=== PATIENT | female | born 2000 | race Caucasian/White ===

== ENCOUNTER 2019-09-13 19:51 | Emergency (ER) | payer OTHER ==
[~2019-09-13] VITALS: Ht 162.6 cm; Wt 77.1 kg
[2019-09-13 20:23] LABS: Source, Urine Clean Catch
[2019-09-13 20:26] LABS: Appearance, Urine Hazy (Clear); Bilirubin, Urine Neg (Neg); Blood, Urine 4+ (Neg); Color, Urine Yellow (P-Yellow); Glucose Qualitative, Urine Neg (Neg); Ketones, Urine Neg (Neg); Leukocyte Esterase, Urine 3+ (Neg); Nitrite, Urine Neg (Neg); Protein, Urine 3+ (Neg); Urobilinogen, Urine NORM (Normal)
[2019-09-13 20:32] LABS: Bacteria Many /hpf; Squamous Epithelial Cells Mod /hpf (Few)
[2019-09-13 20:33] LABS: Mucus Mod (0-Heavy)
[2019-09-13] MEDS ORDERED: NORCO 7.5-3251 EACH PO (21:55)
[2019-09-13] MEDS ORDERED: Cipro500 MG PO (21:55)
[2019-09-13] MEDS ORDERED: IBU800 MG PO (21:55)
== END 2019-09-13 22:24 | disposition home or self-care (01) ==
LOC: ER 19:51
PROVIDERS: Physician Assistant
DX: N10 Acute pyelonephritis (principal)
CPT/HCPCS: 74176; 81001; 81025; 87077; 87086; 87186; 99284-25; A9270

== ENCOUNTER 2023-03-17 23:13 | Emergency (ER) | payer OTHER ==
[~2023-03-17] VITALS: Ht 160 cm; Wt 77.1 kg
[~2023-03-17 23:13] MED LIST: Cipro500 MG PO; IBU800 MG PO; NORCO 7.5-3251 EACH PO
[2023-03-17 23:24] VITALS: BP 132/73
[2023-03-17] MEDS ORDERED: Amoxicillin500 MG PO (23:50)
== END 2023-03-18 00:20 | disposition home or self-care (01) ==
LOC: ER 23:13
DX: J02.0 Streptococcal pharyngitis (principal); Z79.2 Long term (current) use of antibiotics; Z79.52 Long term (current) use of systemic steroids; Z79.1 Long term (current) use of non-steroidal anti-inflammatories (NSAID); F17.210 Nicotine dependence, cigarettes, uncomplicated
CPT/HCPCS: 87430; 99282; A9270

== ENCOUNTER → 2023-07-16 | Outpatient (CLI) | payer OTHER ==
[~2023-07-16] MED LIST changes: +Amoxicillin500 MG PO
== END | disposition home or self-care (01) ==
LOC: LAB 17:33 → LAB SHORT 17:33
DX: R30.0 Dysuria (principal)
CPT/HCPCS: 87086

== ENCOUNTER → 2024-08-11 | Outpatient (CLI) | payer OTHER | END | disposition home or self-care (01) | LOC: LAB SHORT 14:26 → LAB 14:26 | DX: N39.0 Urinary tract infection, site not specified (principal) | CPT/HCPCS: 87077; 87086; 87186 ==

== ENCOUNTER → 2024-10-16 | Outpatient (CLI) | payer OTHER | END | disposition home or self-care (01) | LOC: LAB SHORT 15:12 → LAB 15:12 | DX: N39.0 Urinary tract infection, site not specified (principal); R30.0 Dysuria; R35.0 Frequency of micturition | CPT/HCPCS: 87086 ==

== ENCOUNTER 2025-07-06 08:51 | Emergency (ER) | payer OTHER ==
[~2025-07-06] VITALS: Ht 165.1 cm; Wt 74.8 kg
[2025-07-06] MEDS ORDERED: Prochlorperazine Edisylate 10 mg Vial IV ONE (09:40)
[2025-07-06] MEDS ORDERED: DiphenhydrAMINE HCl 50 MG/ML 1ML Vial IV ONE (09:40)
[2025-07-06] MEDS ORDERED: NS 1,000 ML IV SCH (09:40)
[2025-07-06 10:23] LABS: Source, Urine Clean Catch
[2025-07-06 10:31] LABS: Bilirubin, Urine Neg (Neg); Color, Urine Yellow (P-Yellow); Glucose Qualitative, Urine Neg (Neg); Ketones, Urine Neg (Neg); Leukocyte Esterase, Urine 2+ (Neg); Protein, Urine 2+ (Neg); Specific Gravity, Urine 1.025 (1.003-1.022); Urobilinogen, Urine NORM (Normal)
[2025-07-06 10:48] LABS: White Blood Cells, Urine 50-100 /hpf (0-5)
[2025-07-06] MEDS ORDERED: CEPH500 PO (11:04)
[2025-07-06] MEDS ORDERED: Ketorolac Tromethamine 15mg Vial IV ONE (11:05)
[2025-07-06 11:15] VITALS: BP 132/72
== END 2025-07-06 11:30 | disposition home or self-care (01) ==
LOC: ER 08:51
PROVIDERS: Emergency Medicine
DX: G43.909 Migraine, unspecified, not intractable, without status migrainosus (principal); N39.0 Urinary tract infection, site not specified; F17.290 Nicotine dependence, other tobacco product, uncomplicated; Z79.899 Other long term (current) drug therapy
CPT/HCPCS: 70450; 81001; 81025; 87077; 87086; 87186; 96361; 96374; 96375; 99283-25; A9270; J0780; J1200; J1885; J7030

== ENCOUNTER → 2025-07-08 | Outpatient (CLI) | payer OTHER ==
[~2025-07-08] MED LIST changes: +CEPH500 PO
== END ==
LOC: LAB SHORT 13:15 → LAB 13:15
DX: R30.0 Dysuria (principal)
CPT/HCPCS: 87077; 87086; 87186

== ENCOUNTER → 2025-07-28 | Outpatient (CLI) | payer OTHER | LOC: LAB SHORT 14:59 → LAB 14:59 | DX: N39.0 Urinary tract infection, site not specified (principal) | CPT/HCPCS: 87077; 87086; 87186 ==